=== PATIENT | female | born 1975 | race Caucasian/White ===

== ENCOUNTER 2017-03-01 10:08 | Emergency (ER) | payer MEDICARE | END 2017-03-01 11:14 | disposition home or self-care (01) | LOC: D.ER 10:08 | DX: F19.939 Other psychoactive substance use, unspecified with withdrawal, unspecified (principal); G89.29 Other chronic pain; M54.5 Low back pain ==

== ENCOUNTER → 2017-06-22 10:11 | Outpatient (CLI) | payer MEDICARE | END | disposition home or self-care (01) | LOC: D.MRI 10:00 | DX: M25.511 Pain in right shoulder (principal) ==